=== PATIENT | female | born 1960 | race Two or more races ===

== ENCOUNTER 2024-05-08 08:11 | Emergency (ER) | payer OTHER ==
[~2024-05-08] VITALS: Ht 160 cm; Wt 73.5 kg
== END 2024-05-08 10:47 | disposition home or self-care (01) ==
LOC: ER 08:12
DX: S29.8XXA Other specified injuries of thorax, initial encounter (principal); W18.30XA Fall on same level, unspecified, initial encounter; Y93.E9 Activity, other interior property and clothing maintenance; Y92.018 Other place in single-family (private) house as the place of occurrence of the external cause